=== PATIENT | female | born 1955 | race Caucasian/White ===

== ENCOUNTER → 2016-10-17 | Day surgery (SDC) | payer BC, MEDICARE ==
[~2016-10-17] MED LIST: ACYC400T PO; ASPI1TAB69 PO; CALC1TAB87 PO; ESOM1CAP6 PO; ESTR.3 PO; FLUT50SP EACH NARE; LACTATED RINGER'S 1,000 ML BAG IV ONE; LISI10TA PO; MEPERIDINE HCL 50 MG/ML VIAL ONE; MULT1TAB84 PO; ONABOTULINUMTOXINA INJ 100 UNITS/VIAL ONE; PROBCAP11 PO; PROPOFOL 500 MG/50 ML BTL IV ONE; RANI150C PO; SODIUM CHLORIDE 0.9% INJ 10 ML ONE
== END | disposition home or self-care (01) ==
LOC: ESDC 06:32
PROVIDERS: ATTEND Internal Medicine Gastroenterology
DX: K22.2 Esophageal obstruction (principal); K29.70 Gastritis, unspecified, without bleeding; K20.9 Esophagitis, unspecified
CPT/HCPCS: 00740; 43236; 43239; 43248; 88305; 88312; J0585; J2175; J3010; J7120